=== PATIENT | female | born 1995 | race Caucasian/White ===

== ENCOUNTER 2020-03-16 19:38 | Outpatient (CLI) | payer OTHER ==
[~2020-03-16] VITALS: Ht 157.5 cm; Wt 98.6 kg
--- NOTE | 2020-03-16 20:00 | NUR ---
G1 at 37.4 weeks gestation to LDR3 with c/o contractions at home since 1030. Patient changed into gown and wedged to left side in bed. EFMs explained and applied. FHR 130 bpm and reactive. CTX q3-6 minutes per toco. Mild to palpation. VSS. SVE /-. Plan of care reviewed with patient and spouse.
[2020-03-16 20:30] VITALS: BP 135/84; PULSE 85
--- NOTE | 2020-03-16 21:20 | NUR ---
SVE with no change after 1 hour. Discharge instructions reviewed with patient and spouse.
[2020-03-16 21:30] VITALS: BP 129/74; PULSE 81; TEMP 98.4
== END 2020-03-16 21:35 | disposition home or self-care (01) ==
LOC: LDRO 19:38 → LDR 20:19 → LDRO 21:35
DX: O62.9 Abnormality of forces of labor, unspecified (principal); Z3A.37 37 weeks gestation of pregnancy
CPT/HCPCS: OP

== ENCOUNTER 2020-03-17 06:55 | Inpatient (IN) | payer OTHER ==
[~2020-03-17] VITALS: Ht 157.5 cm; Wt 98.6 kg
[2020-03-17] VITALS (37 sets, daily range): BP systolic 15–155; BP diastolic 52–101; PULSE 64–117; TEMP 97.4–98.6
--- NOTE | 2020-03-17 05:35 | NUR ---
Pt arrived on unit with complaints of contractions. Pt denies any leaking of fluid or vaginal bleeding and reports normal movement. EFM and toco monitors started. Vital signs WNL. SVE by this RN .
--- NOTE | 2020-03-17 06:50 | NUR ---
IV started to right hand x 2 attempts. Lab work obtained by IV site and flushes well without difficulty. Pt up and to bathroom and then to birthing ball.
--- NOTE | 2020-03-17 07:40 | NUR ---
Pt back to EFM, FHR reactive and contractions every 3-4 minutes.
[2020-03-17 08:01] LABS: BASO % 0.4 % (0.0-2.0); EOS # 0.1 (0.0-0.7); EOS % 0.7 % (0-4.0); GRAN # 7.4 (1.4-6.5); GRAN % 69.8 % (42.2-75.2); HEMOGLOBIN 11.8 g/dl (12.5-16.0); LYMPH # 2.1 (1.2-3.4); LYMPH % 19.5 % (20.0-51.0); MEAN CELL VOLUME 80 fl (80.0-100.0); MEAN CORPUSCULAR HEMOGLOBIN 26 pg (27.0-31.0); MEAN CORPUSCULAR HGB CONC 32 g/dl (33.0-37.0); MEAN PLATELET VOLUME 12.3 fl (7.4-10.4); MONO % 9.2 % (1.7-9.3); PLATELET COUNT 272 K/mm3 (130-400); RED BLOOD COUNT 4.55 M/mm3 (4.10-5.30); REDCELL DISTRIBUTION WIDTH-CV 14.8 % (11.5-14.5)
[2020-03-17 08:04] LABS: HEMATOCRIT 36.4 % (37.0-47.0)
--- NOTE | 2020-03-17 08:20 | NUR ---
Dr Mao here and at bedside. Pt back to bed and to [facility]. SVE: /-1, AROM, clear fluid noted. Pt denies wanting an epidural at this time.
--- NOTE | 2020-03-17 09:30 | NUR ---
Ba HYDROGEN TREATER at bedside. Pt sitting up on side of bed. Epidural placed, see anesthesia notes.
--- NOTE | 2020-03-17 10:28 | NUR ---
recurrent late decels noted for the last 10 minutes. Pt repositioned to right side. 1042:prolonged decel followed by a late decel. FHR decreased to 70bpm for 2 1/2 minutes. Pt repositioned to left lateral, pitocin off and scalp electrode placed. SVE: 4-5/90/-2. 1050:Dr Mao called and notified of recent late and prolonged decelerations. FHR now with minimal variability. O2 on at 10L per mask. Orders to keep pitocin off at this time and continue to monitor. Physician will attempt to look at monitor strip from the office at this time.
--- NOTE | 2020-03-17 11:45 | NUR ---
FHR reactive at this time, pitocin started at 2mu. 1210:Dr Mao called and updated, notified of reactive NST and pitocin restarted at 2mu. States he will be here approximately 1300 to evaluate. 1220:SVE: .
--- NOTE | 2020-03-17 13:00 | NUR ---
Dr Mao here, reviews monitor strip. SVE: /-1. No new orders, will continue plan of care.
--- NOTE | 2020-03-17 13:35 | NUR ---
scalp electrode off leg. Replaced at this time. 1338:SVE: /0. Pt repositioned to a sitting up position.
--- NOTE | 2020-03-17 15:07 | NUR ---
Dr Mao called for delivery. 1513:Dr Mao here. Prepped for delivery. Pt cotinues to push with 2 more contractions. 1519: of fetus head. Shoulder dystocia called and pt's head of bed down and monae manuever performed. 23 seconds after head the shoulders delivered, at 1519. Cord clamped and to mothers abd and in care of Vanita EDMOND. 1525:Spontaneous delivery of placenta. LR with pitocin infusing at 333ml/hr per protocol. 2nd degree laceration repaired by physician. Fundus firm, bleeding is WNL. new pads and ice pack in place.
--- NOTE | 2020-03-17 16:19 | NUR ---
1430:SVE: complete +2. Pt prepped for pushing and begins with contractions. 1447: Deep, recurrent variable decels noted with pushing. FHR decreased to 70-80bpm for 60 seconds. Pt making progress with pushing. Dr Mao called to notify of decels. Continue to push and will call when needed for delivery.
[2020-03-18 01:20] VITALS: BP 91/60; PULSE 90; TEMP 97.6
[2020-03-18 05:10] VITALS: BP 112/68; PULSE 75; TEMP 98
[2020-03-18 08:10] VITALS: BP 109/55; PULSE 90; TEMP 97.9
[2020-03-18] MEDS ORDERED: IBU600 MG PO (08:50)
--- NOTE | 2020-03-18 09:16 | NUR ---
Initial visit; Parents thanked String Winding Machine Operator for offering congratulations and God's blessings for the of their son. String Winding Machine Operator thanked family for choosing [facility].
[2020-03-18 16:30] VITALS: BP 121/67; PULSE 85; TEMP 98.2
[2020-03-18 19:34] VITALS: BP 144/66; PULSE 98; TEMP 98.7
[2020-03-19 07:00] VITALS: BP 112/68; PULSE 78; TEMP 98.2
== END 2020-03-19 14:20 | disposition home or self-care (01) | DRG 807 ==
LOC: LDRO 06:55 → OB 06:56 → LDR 06:56 → LDRO 08:23 → OB 18:15
PROVIDERS: ADMIT Obstetrics & Gynecology
PROC: 10E0XZZ Delivery of Products of Conception, External Approach (ICD-10-PCS; principal; 2020-03-17)
PROC: 0KQM0ZZ Repair Perineum Muscle, Open Approach (ICD-10-PCS; 2020-03-17)
PROC: 10907ZC Drainage of Amniotic Fluid, Therapeutic from Products of Conception, Via Natural or Artificial Opening (ICD-10-PCS; 2020-03-17)
DX: O99.214 Obesity complicating childbirth (principal); Z37.0 Single live birth; O70.1 Second degree perineal laceration during delivery; O66.0 Obstructed labor due to shoulder dystocia; Z3A.37 37 weeks gestation of pregnancy
CPT/HCPCS: J2590; J2795; J7120

== ENCOUNTER 2021-11-26 17:44 | Outpatient (CLI) | payer OTHER ==
[~2021-11-26 17:44] MED LIST: IBU600 MG PO
--- NOTE | 2021-11-26 17:50 | NUR ---
Presents to L&D for c/o contractions every 3-4 minutes over last 2.5 hours, lasting 45-60 seconds each. Reports she was / at office visit this week with . Explained typical labor check procedure. Verbalizes understanding.
[2021-11-26] MEDS ORDERED: NATURAL IRON65 MG (18:17)
[2021-11-26] MEDS ORDERED: PRENATAL TABLET PO (18:18)
--- NOTE | 2021-11-26 18:54 | NUR ---
PT TRYING TO SIT UP HIGHER IN THE BED, ASSISTED HER UP AND PILLOWS PLACED FOR COMFORT. Fhr CAME OFF THE MONITOR WHILE POSITIONING PT.
[2021-11-26 19:12] VITALS: BP 129/78; PULSE 89; TEMP 97.9
--- NOTE | 2021-11-26 19:35 | NUR ---
PT WAS SEEN FOR UC'S. SHE WAS MONITORED FOR ONE HOUR AND CERVIX RECHECKED. THERE WAS NO CHANGE IN THE EXAM. DR ABDALLA NOTIFIED OF UC'S SPACING OUT AND NOT STRONG TO PT. PT TALKING THROUGH UC'S. UC'S PALPATE MILD. PT STATES SHE WOULD PREFER TO GO HOME AND LABOR AND GET SOMETHING TO EAT. VS ARE ARE STABLE. DR ABDALLA IS FINE WITH THAT PLAN. PT GIVEN DISCHARGE INSTRUCTIONS AND WHEN TO RETURN. PT ASKED QUESTIONS AND ANSWERED. PT VERBALIZED UNDERSTANDING. MONITORS WERE DC'D, PT AMB TO BR TO GET DRESSED. DISCHARGE INSTRUCTIONS WERE PRINTED AND GONE OVER WITH THE PT AND HER , BOTH VERBALIZED UNDERSTANDING OF THEM. AT 1926 PT AMB OFF THE UNIT WITH HER IN STABLE CONDITION.
== END 2021-11-26 19:26 | disposition home or self-care (01) ==
LOC: LDRO 17:44 → LDR 17:51
DX: Z34.93 Encounter for supervision of normal pregnancy, unspecified, third trimester (principal); Z3A.38 38 weeks gestation of pregnancy

== ENCOUNTER 2021-11-29 11:00 | Outpatient (CLI) | payer OTHER ==
[~2021-11-29] VITALS: Ht 157.5 cm; Wt 99.1 kg
[~2021-11-29 11:00] MED LIST changes: +NATURAL IRON65 MG; +PRENATAL TABLET PO
--- NOTE | 2021-11-29 11:10 | NUR ---
Dr. Mao walking off unit. This RN notifies Dr. Mao of patient's arrival and that she has come in for contractions. Dr. Mao wants to be updated after an hour.
[2021-11-29] MEDS ORDERED: TYLENOL 325MG325 MG PO (11:24)
[2021-11-29 11:30] VITALS: BP 136/73; PULSE 108; TEMP 97.7
[2021-11-29 12:00] VITALS: BP 136/80; PULSE 108
[2021-11-29 13:10] VITALS: BP 132/86; PULSE 105
--- NOTE | 2021-11-29 13:39 | NUR ---
[address] ABDALLA CALLED AND UPDATED, ORDERS TO DISMISSED TO HOME TO FOLLOW UP IN OFFICE TOMORROW MORNING FOR A RECHECK. THE OFFICE WILL CALL PATIENT FOR TIME. ALL DISCHARGE INSTRUCTIONS GIVEN TO PATIENT AND DISMISSED TO POV WITH VERBAL UNDERSTANDNING NOTED.
== END 2021-11-29 13:35 | disposition home or self-care (01) ==
LOC: LDRO 11:00
DX: O47.1 False labor at or after 37 completed weeks of gestation (principal); Z3A.38 38 weeks gestation of pregnancy

== ENCOUNTER 2021-11-29 16:35 | Inpatient (IN) | payer OTHER ==
[~2021-11-29] VITALS: Ht 157.5 cm; Wt 99.1 kg
[2021-11-29] VITALS (24 sets, daily range): BP systolic 90–145; BP diastolic 48–90; PULSE 84–136; TEMP 97.9–98.3
[~2021-11-29 16:35] MED LIST changes: +TYLENOL 325MG325 MG PO
--- NOTE | 2021-11-29 16:54 | NUR ---
1650 PATIENT RETURNS STATES CONTRACTIONS GETTING MORE FREQUENT. EFM ON FHT 130 BABY VERY ACTIVE. SVE UNCHANGED FROM EARLIER TODAY . NO BLOODY SHOW NOTED. ASSESSMENT COMPLETED. DENIES NEEDS AT THIS TIME.
[2021-11-29 18:10] LABS: BASO % 0.2 % (0.0-2.0); EOS % 0.1 % (0.0-4.0); GRAN # 11.2 K/mm3 (1.4-6.5); GRAN % 79.4 % (42.2-75.2); HEMOGLOBIN 11.3 g/dl (12.5-16.0); LYMPH # 1.9 K/mm3 (1.2-3.4); LYMPH % 13.6 % (20.0-51.0); MEAN CELL VOLUME 75 fl (80.0-100.0); MEAN CORPUSCULAR HEMOGLOBIN 24 pg (27-31); MEAN CORPUSCULAR HGB CONC 32 g/dl (33.0-37.0); MEAN PLATELET VOLUME 11.3 fl (7.4-10.4); MONO # 0.9 K/mm3 (0.1-0.6); MONO % 6.3 % (1.7-9.3); PLATELET COUNT 345 K/mm3 (130-400); RED BLOOD COUNT 4.77 M/mm3 (4.10-5.30); REDCELL DISTRIBUTION WIDTH-CV 14.7 % (11.5-14.5)
[2021-11-29 18:12] LABS: HEMATOCRIT 35.6 % (37.0-47.0)
--- NOTE | 2021-11-29 18:41 | NUR ---
1730 SVE UNCHANGED BUT BULGY BAG NOTED. DR SIBLEY CALLED AND UPDATED. ORDERS TO ADMIT FOR LABOR, OK TO GET EPIDURAL. ORDERS PLACED
--- NOTE | 2021-11-29 18:44 | NUR ---
1800 IVF STARTED IN RIGHT HAND. LR ELIAS. [facility] ICT SUPPORT TECHNICIANS CALLED TO COME FOR EPIDURAL PLACEMENT. 1810 PATIENT SITS UP ON EDGE OF BED FOR EPIDUAL PLACEMENT. Minerva HACKETT ICT SUPPORT TECHNICIANS AT BEDSIDE. SEE ICT SUPPORT TECHNICIANS NOTES FOR QUESTIONS. TOLERATES WELL.
--- NOTE | 2021-11-29 18:56 | NUR ---
1815 REPORT GIVEN TO Cady CARLTON RN TO ASSUME CARE AT THIS TIME
[2021-11-30] VITALS (21 sets, daily range): BP systolic 96–144; BP diastolic 51–89; PULSE 79–123; TEMP 97.4–98.8
--- NOTE | 2021-11-30 02:15 | NUR ---
0140- SVE 9/100/+1, TURNED TO LEFT WEDGE. 0144- PT VOMITING. 0151- SVE OF COMPLETE/+2. 0157- DR. SIBLEY NOTIFIED OF IMPENDING DELIVERY. 0159- AMBROSE DC'D, 350MLS URINE OUT. DR SIBLEY IN ROOM FOR DELIVERY. 0205- SPONTANEOUS VAGINAL DELIVERY OF VIABLE BABY GIRL. BABY TO MOTHER'S ABDOMEN, CORD CLAMPED BY DR. SIBLEY, CUT BY FOB. BABY CARES ASSUMED BY Selwyn MILLER RN. 0208- SPONTANEOUS DELIVERY OF INTACT PLACENTA. PITOCIN STARTED AT 333ML/HR PER PROTOCOL. DR. SIBLEY BEGINS REPAIR FO 2ND DEGREE LACERATION. 0215- RECOVERY STARTED.
--- NOTE | 2021-11-30 09:07 | NUR ---
Initial visit; Parents thanked Administrative Tech for offering congratulations and God's blessings for the of their daughter. Administrative Tech thanked family for choosing our hospital.
[2021-12-01 00:29] VITALS: BP 106/54; PULSE 78; TEMP 97.4
[2021-12-01 07:10] VITALS: BP 110/62; PULSE 72; TEMP 98.2
[2021-12-01] MEDS ORDERED: IBU800 M1 PO (08:25)
== END 2021-12-01 10:54 | disposition home or self-care (01) | DRG 807 ==
LOC: LDRO 16:35 → LDR 17:52 → OB 17:52
PROVIDERS: ADMIT Obstetrics & Gynecology
PROC: 10E0XZZ Delivery of Products of Conception, External Approach (ICD-10-PCS; principal; 2021-11-30)
PROC: 0KQM0ZZ Repair Perineum Muscle, Open Approach (ICD-10-PCS; 2021-11-30)
DX: O99.214 Obesity complicating childbirth (principal); Z37.0 Single live birth; O99.02 Anemia complicating childbirth; D64.9 Anemia, unspecified; O99.344 Other mental disorders complicating childbirth; F32.A Depression, unspecified; O66.0 Obstructed labor due to shoulder dystocia; O70.1 Second degree perineal laceration during delivery; Z3A.38 38 weeks gestation of pregnancy
CPT/HCPCS: J2590; J7120